=== PATIENT | male | born 2000 | race Caucasian/White ===

== ENCOUNTER 2022-10-30 14:38 | Emergency (ER) | payer OTHER, SELFPAY ==
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
[2022-10-30 15:13] VITALS: BP 108/60; PULSE 53; RESP 18; TEMP 36.4; O2SAT 100
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
== END 2022-10-30 16:00 | disposition home or self-care (01) ==
PROVIDERS: Emergency Provider Nurse Practitioner Family
DX: M24.811 Other specific joint derangements of right shoulder, not elsewhere classified (principal); V86.56XA Driver of dirt bike or motor/cross bike injured in nontraffic accident, initial encounter
CPT/HCPCS: 73030; 99213; G0463

== ENCOUNTER 2025-05-15 08:02 | Emergency (ER) | payer BC, OTHER, SELFPAY ==
--- NOTE | ~2025-05-15 | XR_ITS ---
EXAM/ PROCEDURE: XR ankle LT min 3V - 05/15/2025 8:18 CDT HISTORY: 25 years old Male with left lateral/medial ankle pain- roll injury COMPARISON: None available TECHNIQUE: Four view(s) FINDINGS/ IMPRESSION: There are no fractures or dislocations.Joint spaces are within normal limits. Mild diffuse soft tissu e injury around the ankle. Reviewed, dictated and finalized at location A.
--- OUTSIDE RECORDS SUMMARY | 2025-05-15 08:05 | XMS_ITS | Continuity of Care Document ---
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 SEL[place] [facility] [place] [address](ATR 331 TRS,BMT) OUTPATIENT [id number] Notes Entered by: MARK CHURCH 13 Aug 2019 0845 ------- ------- ------- ------- -- L ankle f/u ENOC CHURCH 08/13 Released w/o Limitations [facility] [place] [address](A TR 331 TRS,BMT ) [employer]([facility]) OUTPATIENT [id number] sore throat, nausea x 48hrs-- SQ361 MARE GAUTAM 10/28 Released w/o Limitations [employer]([facility]) [employer]([facility]) TELE CONSULT [id number] Notes Entered by: Gregoria GAUTAM 31 Oct 2019 0808 ------- ------- ------- ------- -- Test Results SELENE MORSE 10/31 Released to Self Care [employer](O peratio nal Primary Care) [employer]([facility]) TELE CONSULT [id number] Notes Entered by: DARRION DRISCOLL 14 Apr 2020 1141 ------- ------- ------- ------- -- Tevin Medina Pt c/o stomach pain that comes and goes since y Right now pain YURY VICTORIA 04/14 Referred for Appointment [employer](F light Medicin e Clinic) [employer](Anand demic Virus) OUTPATIENT [id number] DTT RONNIE CARLSON 04/15 Released w/o Limitations [employer](P andemic Virus) [employer](Anand demic Virus) TELE CONSULT [id number] Notes Entered by: ALDO HERNDON 17 Apr 2020 1008 ------- ------- ------- ------- -- NEG COVID results ALDO HERNDON 04/17 Medical Group(P andemic Virus) [facility] Group(Bas e Operation al Medicine Cell) OUTPATIENT [id number] Joyce NIK MYRNAJoyce BAKER 04/22 Released w/o Limitations [facility](B ase Operati onal Medicin e Cell) [facility](Bas e Operation al Medicine Cell) OUTPATIENT [id number] Notes Entered by: KATHERIN LOMBARDI 28 Apr 2020 1312 ------- ------- ------- ------- -- JESSICA WEBSTER 04/28 Released w/o Limitations [employer](B ase Operati onal Medicin e Cell) [facility](Hea ring Conservat ion) OUTPATIENT [id number] Notes Entered by: DRAKE PIENDA 01 May 2020 1448 ------- ------- ------- ------- -- NINA MARLEY 05/01 Released w/o Limitations [facility](H earing Conserv ation) [facility](Hea ring Conservat ion) OUTPATIENT [id number] Notes Entered by: DRAKE PINEDA 04 May 2020 0817 ------- ------- ------- ------- -- NINA MARLEY 05/04 Released w/o Limitations [employer] [facility](H earing Conserv ation) [facility]) TELE CONSULT [id number] Notes Entered by: SHARRON VAZQUEZ 03 Jul 2020 0933 ------- ------- ------- ------- -- Tevin Hawthorne c/o diarrhe a and nausea CECELIA MCGOWAN 07/03 Released to [facility] [employer] [facility](F light Medicin e Clinic) [facility](Opt ometry Services) OUTPATIENT [id number] optomet ry SATURNINO HOWARD 07/21 Released w/o Limitations [employer] [facility](O ptometr y Service s) [facility](Opt ometry Services) OUTPATIENT [id number] DFE/CL Update SATURNINO HOWARD 07/22 Released w/o Limitations [facility](O ptometr y Service s) [facility](Anand demic Virus) TELE CONSULT [id number] Notes Entered by: JASPREET KinneyMITCH BETTE 04 Aug 2020 0708 ------- ------- ------- ------- -- Ac. Roly Cruz COVID-1 9 concern . Sore/sc ratchy throat, headach e, loss of taste, STEENSTRY, THOMAS 08/04 Referred for Appointment [facility](P andemic Virus) [facility](Anand demic Virus) OUTPATIENT [id number] covid, red f150 MARYANA SEAY 08/04 Sick at Home/Quarter s [facility](P andemic Virus) [facility](Anand demic Virus) TELE CONSULT [id number] Notes Entered by: YANIRA SANTACRUZ 05 Aug 2020 0917 ------- ------- ------- ------- -- COVID results ALDO HERNDON 08/05 [facility] Group(P andemic Virus) [facility](Anand demic Virus) TELE CONSULT [id number] Notes Entered by: Joyce FOSTER 23 Sep 2020 0702 ------- ------- ------- ------- -- Ac. Hawthorne COVID-1 9 concern ; New/wor sening headach e, wheezin g, body aches, ROSLYN, CECELIA J 09/23 Referred for Appointment [facility](P andemic Virus) [facility](Anand demic Virus) OUTPATIENT [id number] COVID PUI: cough, chest congest ion, fever ESTELA ARZATE 09/23 Sick at Home/Quarter s th [facility](P andemic Virus) [facility] Group(Anand demic Virus) OUTPATIENT [id number] Notes Entered by: VENKATA AMBRIZ 25 Sep 2020 0809 ------- ------- ------- ------- -- POS COVID F/U sx 09/22, tested 09/23 VENKATA AMBRIZ 09/25 Released w/o Limitations [facility](P andemic Virus) [facility] ROK 3) OUTPATIENT [id number] PUI sore throat/ sinus pressur e # Black catrachito ROLON ESTELA ARZATE 01/12 Released with Work/Duty Limitations [facility] ROK 3) Medical Group([facility] 3) TELE CONSULT [id number] Notes Entered by: PEDRO HERNANDEZ 12 Jan 2021 1112 ------- ------- ------- ------- -- COVID results YURIDIA HERNANDEZ 01/12 Released to [facility] ROK 3) [facility]) OUTPATIENT [id number] ingrown toenail - big toes # KELLY HAWTHORNE 02/03 Released w/o Limitations [facility](F light Medicin e Clinic) [facility] Medicine [facility]) TELE CONSULT [id number] Notes Entered by: Henrik GONZALEZ 19 Feb 2021 0748 ------- ------- ------- ------- -- Ac. Hawthorne - Pt had Surgery - [facility] 02/18/21 two ingrown KELLY HAWTHORNE 02/19 Medical Group(F light Medicin e Clinic) [facility] Medicine [facility]) TELE CONSULT [id number] Notes Entered by: Enma MANCIA 26 Feb 2021 1416 ------- ------- ------- ------- -- Network Results -Nandini ry-01/22 KELLY HAWTHORNE 02/26 Medical Group(F light Medicin e Clinic) Medical Group(Hea ring Conservat ion) OUTPATIENT [id number] [facility] MACIEL KIMMYTONY GALE 04/20 Released w/o Limitations [facility](H earing Conserv ation) [facility](Bas e Operation al Medicine Cell) OUTPATIENT [id number] MYRNA POWELL 04/30 Released w/o Limitations [facility](B ase Operati onal Medicin e Cell) [facility](Bas e Operation al Medicine Cell) OUTPATIENT [id number] Notes Entered by: Andrew OLGUIN 04 Jun 2021 1119 ------- ------- ------- ------- -- Dhara-SARTHAK Almaraz 06/04 Released w/o Limitations [facility](B ase Operati onal Medicin e Cell) Medical Group(Bas e Operation al Medicine Cell) OUTPATIENT [id number] MYRNA ARCE 06/08 Released w/o Limitations [facility](B ase Operati onal Medicin e Cell) [facility] Medicine [facility]) TELE CONSULT [id number] Notes Entered by: DARRION DRISCOLL 19 Jul 2021 0936 ------- ------- ------- ------- -- Tevin Olguin Pt due for REE and needs new glasses He deploys Aug 18 [phone] 7 RENETTA RODRÍGUEZ 07/19 Referred for Appointment [facility](F light Medicin [facility]) [facility] OUTPATIENT [id number] 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 01/02 Released w/o Limitations Theater Facilit [facility] 0013C-AF- C-19TH [facility] [id number] Encount er for issue of other medical certifi piyush ZHOU 08/22 Discharge Disposition: Home or Self Care 0013C-A F-C-19T H [facility] [place] 0013C-AF- C-19TH [facility] Mass Vaccine [id number] 09/23 0013C-A F-C-19T H [facility] [place] 0013C-AF- C-19TH [facility] Dental [id number] ADRIANNE RGARRJAMES 10/01 Discharge Disposition: Home or Self Care 0013C-A F-C-19T H [facility] 0013C-AF- C-19TH [facility] [id number] Encount er for issue of other medical certifi piyush RUPALI FERMIN 11/22 Discharge Disposition: Home or Self Care 0013[facility] [id number]-[id number] MD[facility] Outside Documentat ion Only [id number] 12/03 Discharge Disposition: Home or Self Care 8224R-1 26 MDG Procedures Combined list of: 1) Procedures from Department of Veterans Affairs facilities going back up to thelast 18 months, not all VA non-surgical procedures are included; 2) All procedures from the Department of Defense facilities. Procedure Procedure Type Code Date Perfomer Comments Sourc e No data available for this section Ambulatory Pharmacy TELE ASSESS & MGT SRV PROV QUAL NONPHYS HLTH CARE PRO TO EST PAT,PARENT,GUARD NOT ORIG REL ASSESS & MGT SRV PROV W/IN PREV 7 DAYS NOR LEAD ASSESS & MGT SRV/PX W/IN NXT 24 HR/SOON APT;5-10 MIN MED DIS 2020 [facility] ADMINISTRATION OF PATIENT-FOCUSED HEALTH RISK ASSESSMENT INSTRUMENT (EG, HEALTH HAZARD APPRAISAL) WITH SCORING AND DOCUMENTATION, PER STANDARDIZED INSTRUMENT 2020 DoD ADMINISTRATION OF PATIENT-FOCUSED HEALTH RISK ASSESSMENT INSTRUMENT (EG, HEALTH HAZARD APPRAISAL) WITH SCORING AND DOCUMENTATION, PER STANDARDIZED INSTRUMENT 2020 DoD BRIEF COMM TECH-BASE SERV,E.G. VIRT CHK-IN,BY PHYS/OTH QUAL HCP,RPT E&M SERV,PROV TO EST PT,NOT ORIG FRM REL E/M SERV PROV W/IN PREV 7DAY NOR LEAD TO E/M SRV/PX W/IN NEXT 24HR/SOON BERNARD; 5-10 MIN DISC 2020 DoD SCREENING TEST, PURE TONE, AIR ONLY 2020 DoD PSYCHOLOGICAL OR NEUROPSYCHOLOGICAL TEST ADMINISTRATION, WITH SINGLE AUTOMATED, STANDARDIZED INSTRUMENT VIA ELECTRONIC PLATFORM, WITH AUTOMATED RESULT ONLY 2020 DoD BRIEF COMM TECH-BASE SERV,E.G. VIRT CHK-IN,BY PHYS/OTH QUAL HCP,RPT E&M SERV,PROV TO EST PT,NOT ORIG FRM REL E/M SERV PROV W/IN PREV 7DAY NOR LEAD TO E/M SRV/PX W/IN NEXT 24HR/SOON BERNARD; 5-10 MIN DISC 2020 DoD BRIEF COMM TECH-BASE SERV,E.G. VIRT CHK-IN,BY PHYS/OTH QUAL HCP,RPT E&M SERV,PROV TO EST PT,NOT ORIG FRM REL E/M SERV PROV W/IN PREV 7DAY NOR LEAD TO E/M SRV/PX W/IN NEXT 24HR/SOON BERNARD; 5-10 MIN DISC 2019 DoD TELE ASSESS & MGT SRV PROV QUAL NONPHYS HLTH CARE PRO TO EST PAT,PARENT,GUARD NOT ORIG REL ASSESS & MGT SRV PROV W/IN PREV 7 DAYS NOR LEAD ASSESS & MGT SRV/PX W/IN NXT 24H/SOON APT; 11-20 MIN MED DIS 2019 DoD PRESCRIPTION OF OPTICAL AND PHYSICAL CHARACTERISTICS OF AND FITTING OF CONTACT LENS, WITH MEDICAL SUPERVISION OF ADAPTATION; CORNEAL LENS, BOTH EYES, EXCEPT FOR APHAKIA 2019 DoD FITTING OF SPECTACLES, EXCEPT FOR APHAKIA; MONOFOCAL 2019 DoD TELE ASSESS & MGT SRV PROV QUAL NONPHYS HLTH CARE PRO TO EST PAT,PARENT,GUARD NOT ORIG REL ASSESS & MGT SRV PROV W/IN PREV 7 DAYS NOR LEAD ASSESS & MGT SRV/PX W/IN NXT 24 HR/SOON APT;5-10 MIN MED DIS 2019 DoD SCREENING TEST, PURE TONE, AIR ONLY 2019 [facility] SCREENING TEST, PURE TONE, AIR ONLY 2019 [facility] ADMINISTRATION OF PATIENT-FOCUSED HEALTH RISK ASSESSMENT INSTRUMENT (EG, HEALTH HAZARD APPRAISAL) WITH SCORING AND DOCUMENTATION, PER STANDARDIZED INSTRUMENT 2019 [facility] BRIEF COMM TECH-BASE SERV,E.G. VIRT CHK-IN,BY PHYS/OTH QUAL HCP,RPT E&M SERV,PROV TO EST PT,NOT ORIG FRM REL E/M SERV PROV W/IN PREV 7DAY NOR LEAD TO E/M SRV/PX W/IN NEXT 24HR/SOON BERNARD; 5-10 MIN DISC 2019 [facility] Threshold Audiogram (Pure Tone) Threshold Audiogram (Pure Tone) [id number] Supervised Injection Intramuscular Antibiotic Supervised Injection Intramuscular Antibiotic [id number] TIMO HEREDIA Brief communication technology-based service, e.g. virtual check-in, by a physician or other qualified health care profe priscila who can report evaluation and management services, provided to an established patient, not originating from a related E/M service provided within the previous 7 days nor leading to an E/M service or procedure within the next 24 hours or soonest available appointment; 5-10 minutes of medical discu MYRNA Vázquez [facility] Audiogram (Screening) Audiogram (Screening) [id number] MARGAR[address] HENSLEY Non-Physician Phone Call To Patient/Provider Brief (5-10min) Non-Physician Phone Call To Patient/Provider Brief (5-10min) [id number] CECELIA MCGOWAN Ophthalmological New Patient Start Comprehensive Care Ophthalmological New Patient Start Comprehensive Care 04133 SATURNINO HOWARD Determination Of Refractive State Determination Of Refractive State 90792 SATURN[address] HOWARD Spectacles Services Fitting Monofocals (Not For Aphakia) Spectacles Services Fitting Monofocals (Not For Aphakia) 97867 SATUNRINO HOWARD 5A: 5222/145, 1 clear FOC: Delia 5516/140 [facility] Ophthalmological Prior Patient Start Intermediate Level Care Ophthalmological Prior Patient Start Intermediate Level Care 58535 SATURNINO HOWARD Prescription & Fitting Bilateral Corneal Lenses (Not Aphakia Prescription & Fitting Bilateral Corneal Lenses (Not Aphakia 15211 SATURNINO HOWARD [facility] Non-Physician Phone Call To Pt/Provider Intermed (11-20 min) Non-Physician Phone Call To Pt/Provider Intermed (11-20 min) 66844 ROSLYN CECELIA Andrew [facility] Psychometric Neuropsych Testing Battery Admin By Computer Psychometric Neuropsych Testing Battery Admin By Computer [id number] BREANNA GREENE [facility] Social History Combined list of available smoking, tobacco, and other social history from Department of Defense and Veterans Affairs facilities. Social History Type Response Date Comment Sourc e Sex Representation Male (finding) 07/21/2020 Un known Organization Tobacco Frequent/Daily exposure to secondhand smoke in indoor/confined spaces No. Cigarette use: Never-cigarette user. Other Tobacco use: Never-other tobacco user (not cigarettes). Ambulatory Pharmacy Sexual Orientation Ambula tory Pharmacy Gender identity Ambulator y Pharmacy This section is an empty social history section. [facility] Assessment and Plan Combined list of future care activities from Department of Defense and Veterans Affairs facilities (e.g., assessment and plan notes, appointments, orders, and referrals). Additional future care activities may be listed in the Plan of Care section. Result Assessment and Plan Date Source Assessment and Plan Extracted from:Title : [facility] - F2F - SHPE (PCPF) Author: RUPALI RAMÍREZ PA Date: 11/22/24 1. E ncounter for issue of other medical certificate H unter G merlin i s a 2 3 Years o ld Male p resents for SHPE prior to separation along with P shirley Feliz/Neptali Madera request. R cornelioiewed and discussed any issues reported on 2806-10 No significant physical or mental health findings identified during record review that would limit e ligibility for the palsahil feliz/palsahil front program. Member is n ot currently under the care of a medical charge entry specialist a nd has no upcoming surgeries scheduled. Member is not currently undergoing an IRILO/MEB. No conditions requiring MEB or urgent referral. No new health concerns at this time. VSS. Exam unremarkable for gross abnormalities. Member is medically cleared for separation. Final Out : T BD Separation Date: 30 JAN 2025 -- Reviewed DD Form 2806-10 and audiogram electronically -- Separation MHA current or accomplished during visit today -- DD Form 2808 and SHPE documents signed/completed in [facility] -- M ember to follow up with PCM as needed for any health changes -- D oes not meet criteria for I n Transition Program -- PVUA SM medically cleared for P CPF. AF Form 422 completed in [facility]. [facility] Readiness: IMR Status: Green Action Items: --- Profile: No restrictions, WWQ Retention: M eets Standards Special Duty: N one Extracted from:Title: [id number]/PHA Author: KRISTI MANCIA NP Date: 08/22/24 1. E ncounter for issue of other medical certificate Virtual encounter for n on-fly PHA/MHA. I spent about 10-19 mins via telephone r eviewing and discussing PHAQ and MHA responses as well as chart/med review. Both PHA and MHA reviewed and signed off i n ASIMO. * High risk/priority items identified: None MHA: Member denies any SI/HI and appears to be low risk for committing any self harm or injury to others. Discussed any concerns identified on questionnaire. D enies need for care or any mental health concerns at this time. PHA: No unaddressed medical issues, significant findings, or need for additional referrals at this time. Patient is a koroma of resources available ([facility], [facility], OP, [facility], P CM, Family Advocacy, [facility]). Discussed available options to schedule with services if desired. Medication reconciliation complete. All questions answered. 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 See [facility] note copied to RADHA for further details. Referral: N one Follow up with PCM a s needed. Reportable Events: N one Profile: N o restrictions Retention: M eets Standards PRAP: N /A Aero: N /A Extracted from:Title: b/l wrist pain Author: PATRICK HARLEY PA Date: 08/21/24 1. P ain in right wrist Three-month history of ongoing independent right wrist paresthesias. Patient endorses numbness increasing over the past week. Patient denies any pain. Patient denies any triggers to cause symptoms. PE positive Tinel's test right wrist, otherwise normal strength, sensation and range of motion. Likely carpal tunnel. - Recommended wrist brace - Trial OT - Pt denies limitations/profile - Follow-up if no improvement Ordered: Referral Request 2.0 - DoD 2. P ain in left wrist History of ongoing left wrist pain. MRI showed arthritic changes. Patient failed meloxicam. Referral to OT. Ordered: Referral Request 2.0 - DoD Dictated, but not proofread, using voice recognition software. Henrik Mcmullen [address] [place] [address], 19 MDG/OMRS [employer], [place] Extracted from:Title: Left wrist pain Author: MELISSA PORTILLO PA Date: 07/16/24 1. P ain of left wrist 24 y ADAF male - CC left wrist pain x 1 week Denies any known trauma/ELEANOR. States insidious onset of left wrist pain one week ago that acutely worsening over the past week. States pain with ROM and strength. Denies any bruising or swelling to wrist. PE exam today: Reduced ROM and strength, worse with eversion and extension. No acute trauma. N o worrisome symptoms for instability, infection; no systemic or diffuse joint symptoms. - Suspected TFCC injury. - Next fitness exam due: August 2024 Plan - Left wrist xray placed, if negative will consider left wrist MRI - Rx'd NSAIDs prn for pain - Counseled on risk of GI bleeding and Renal injury with prolonged NSAIDs use - Discussed rest, ice, elevation alternating with moist heat - Recommended avoiding positions that causes pain - Recommended against exercising through pain, but may exercise otherwise - Provided pt with wrist splint brace (L3809) to wear during activities once cleared with xray - [address]/ placed - Pt agreed to plan Ordered: meloxicam(meloxicam 15 mg oral tablet), 1 tab(s), Oral, Daily, # 30 tab(s), 0 total refill(s), Maintenance, 1 tab(s) Oral Daily, Pharmacy: [facility] [Not filled] XR Hand Complete 3+ Views Left XR Wrist Complete 3+ Views Left [employer]: -- New AF 469 (//MR) -- IMR reviewed - jamia mccarty -- Member is world-wide qualified -- Member meets retention standards BRIGHT Daniel [address], OMRS/SGXF [employer], [place] Extracted from:Title: [facility] - F2F - Audiogram F/u (PTS)-- Reset Author: RUPALI RAMÍREZ PA Date: 06/14/24 1. T emporary auditory threshold shift, left ear Follow up for audiogram abnormality during annual testing for Hearing Conservation Program. C oncern with symptoms as r eported per patient, mostly with soft muffled conversational tones. Denies any safety risk or inability to perform duties s afely in a loud noise environment with ear protection despite responses marked on audiometric history. B ased on history and exam, no concerns for underlying pathology at this time. No indication for audiology referral at this time. However, if additional PTS occurs, will require specialist eval. Continue with hearing protection and annual audiograms. Hearing Profile: H -1 Audiogram Findings: L eft: [facility] Will recommend resetting l eft a udiogram baseline with results from MAY 24 (2nd a ttempt) -- AF IMT 1753 signed and returned to [facility] -- Recommend new DD 2215 with re-established reference -- C ounseled on hearing protection and r ecommend re-fit with HPD -- No specialist referral or Fit and Risk eval indicated at this time -- Member to continue with annual audiograms for HCP -- Will require audiology referral if second PTS occurs -- PVUA 2. O ccupational exposure to noise See above. Reportable Events: N one Profile: N o restrictions Retention: M eets Standards PRAP: N /A Aero: N /A Extracted from:Title: Abdominal pain f/u Author: MELISSA PORTILLO PA Date: 05/22/24 1. C hronic nonspecific abdominal pain 24 y ADAF male- here today for f/u of his chronic intermittent GI complaints - Patient previously under the care of GI for this condition, colonoscopy and biopsies were completed Oct 14 which showed bowel inflammation and internal hemorrhoids. Patient had no expected f/u with GI. I last saw patient for his intermittent LLQ bowel concerns in February, and then again he reported to our clinic two weeks ago for this vague GI pain. No red flags today, he denies any blood or pus in stool, no nausea/vomiting/diarrhea/constip ation. There is no evidence for immediate concern for appendicitis, diverticulitis, testicular torso or other acute GI/ or cardiopulmonary condition today. - History, exam, vital signs, and presentation are reassuring against emergent process. Plan - Return to GI for continued eval and treatment - Will hold on any imaging/labs at this time, will defer to GI specialist after next eval - Recommend food and symptom diary and to bring to GI - ER precautions - No restrictions required at this time, the patient is fully cleared for duty and fitness. - Pt agreed to plan Ordered: Referral Request 2.0 - [facility] [employer] Zachary LAZO: -- No a ctive AF 469 -- IMR reviewed - jamia mccarty -- Member is world-wide qualified -- Member meets retention standards Captain Melissa Portillo PA-C [facility] [employer], [employer], [place] Extracted from:Title: Office Clinic Note Author: MARCEL BOLAND RN Date: 05/01/24 Abdominal pain ER for severe abdominal pain. DO NOT DRIVE SELF, scheduled f/u with pCM for eval, NAL for non emergent appearance of sx's after hours, RTC if duty day Nausea zofran 4mg ODT per Dr Sage. Vomiting Acute, new onset L ikely viral as Sx are <14 days. - Symptomatic care, and self-limited course - Should f/u after 10-14 days of total symptoms or with development of fever >101 - Educated on expected course of symptoms - Educated on management of symptoms to include rest, hydration, gurgle with warm salt water for sore throat, hot tea w/ honey, OTC meds as needed - Report to ER for SOB, chest pain, inability to hold down fluids, other acute concerns. Extracted from:Title: Acute GI illness Author: MELISSA PORTILLO PA Date: 03/06/24 1. G astroenteritis 24 y ADAF male - here today for acute GI symptoms x 2 days. H x of nausea with vomiting yesterday, no vomiting today. Today he endorses primarily nausea with mild headache. - Denies hematochezia, vomiting, fevers, abdominal pain. Denies sick contacts, A ble to tolerate oral fluids fine but feels its passing straight through. Normal urine output. Mild. A febrile. No abdominal pain. I mproving. -Likely viral GE. T here are no concerning factors today for any acute GI/ conditions needing higher level of care. Plan - Rx'd Zofran for acute nausea, Tylenol/Ibuprofen for prn headache. Counseling given on medication usage - Recommend conservative therapy at this point - Encouraged hydration with water and electrolyte containing drinks - Encouraged rest and adequate hand washing - Encouraged BRAT diet - banana, rice, apples, toast - Return to clinic vs. ER if blood in vomit or stool, fever >100.4, severe abd. pain, constitutional symptoms, decreased urine output, vomiting, or inability hydrate - Follow up in 3-5 days if symptoms are not resolved - may need to investigate for more broad etiology - Avoid anti-diarrhea meds to allow for flushing of GI tract - Return to clinic if symptoms persist, consider labs - 48 hour quarters placed - Pt agrees with plan Ordered: ibuprofen(ibuprofen 400 mg oral tablet), 1 tab(s), Oral, every 4 hr, PRN fever, # 60 tab(s), 0 total refill(s), Acute, 04/06/2024, 1 tab(s) Oral every 4 hr,PRN:fever, Pharmacy: [facility] [Last filled 03/06/24] acetaminophen(Tylenol 325 mg oral tablet), 1 tab(s), Oral, every 4 hr, PRN pain or fever, # 50 tab(s), 0 total refill(s), Acute, 03/06/2025, 1 tab(s) Oral every 4 hr,PRN:pain or fever, Pharmacy: [facility] [Last filled 03/06/24] ondansetron(Zofran ODT 4 mg oral tablet, disintegrating), 1 tab(s), Oral, every 8 hr, PRN nausea/vomiting, # 30 tab(s), 0 total refill(s), Acute, 04/06/2024, 1 tab(s) Oral every 8 hr,PRN:nausea/vomiting, Pharmacy: [facility] [Last filled 03/06/24] [employer]: -- No a ctive AF 469 -- IMR andrzej - jamia mccarty -- Member is world-wide qualified -- Member meets retention standards 1st Lt Melissa Portillo PA-C [facility] [employer], [employer] Extracted from:Title: Acute viral URI Author: SHEEBA PATTON, [facility] Date: 01/02/24 Acute URI (upper respiratory infection) 23 y /o ADAF male presents to [facility] for eval of symptoms consistent with resolving acute viral URI. Symptoms likely self-limited at this time and are expected to resolve within 5-7 days. Counseled patient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
--- OUTSIDE RECORDS SUMMARY | 2025-05-15 08:05 | XMS_ITS ---
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 Name Role Phone Crista Simmons Attending Unavailabl e OTHER Primary Unavailable Immunization Immunization Date Status Additional Notes Code Code System Meningococcal MCV4O 05/16/2017 Completed 136 CVX Pneumococcal conjugate PCV 13 01/26/2002 Completed 133 CVX Pneumococcal conjugate PCV 13 2001 Completed 133 CVX Pneumococcal conjugate PCV 13 2001 Completed 133 CVX Tdap 05/24/2012 Completed 115 CVX meningococcal MCV4P 05/24/2012 Completed 114 CVX DTaP, unspecified formulation 05/16/2006 Completed 107 CVX DTaP, unspecified formulation 05/05/2002 Completed 107 CVX DTaP, unspecified formulation 2001 Completed 107 CVX DTaP, unspecified formulation 2001 Completed 107 CVX DTaP, unspecified formulation 2001 Completed 107 CVX polio, unspecified formulation 05/16/2006 Completed 89 CVX polio, unspecified formulation 2001 Completed 89 CVX polio, unspecified formulation 2001 Completed 89 CVX polio, unspecified formulation 2001 Completed 89 CVX Hep A, unspecified formulation 03/31/2014 Completed 85 CVX Hep A, unspecified formulation 05/24/2012 Completed 85 CVX HPV, quadrivalent 05/19/2015 Completed 62 C VX HPV, quadrivalent 07/11/2014 Completed 62 C VX HPV, quadrivalent 03/31/2014 Completed 62 C VX Hep B, unspecified formulation 01/26/2002 Completed 45 CVX Hep B, unspecified formulation 2001 Completed 45 CVX Hep B, unspecified formulation 2001 Completed 45 CVX varicella 11/13/2009 Completed 21 CVX varicella 01/26/2002 Completed 21 CVX Hib, unspecified formulation 01/26/2002 Completed 17 CVX Hib, unspecified formulation 2001 Completed 17 CVX Hib, unspecified formulation 2001 Completed 17 CVX MMR 05/16/2006 Completed 03 CVX MMR 01/26/2002 Completed 03 CVX Results URINALYSIS - Collect Date/Ti me: 03/28/2023 07:55 [facility] ID: [id number] [address], [place], [id number] LOINC: Test Value Unit Reference Range Code Code System Flag Color DARK YELLOW Clarity CLEAR Spec Grav 1.025 NORMAL: 1.001-1.035 PH 6.0 NORMAL: 5 - 6 Leuk Est NEGATIVE NORMAL: NEGATIVE Nitrates Negative NORMAL: NEGATIVE Protein TRACE NORMAL: NEGATIVE A Glucose NEGATIVE NORMAL: NEGATIVE Ketones LARGE NORMAL: NEGATIVE Urobilinogen NORMAL NORMAL: 0-1 mg/dl Bilirubin NEGATIVE NORMAL: NEGATIVE Blood TRACE NORMAL: NEGATIVE Microscopic See Below Wbc (1-5) NORMAL: 0-3 /hpf Rbc (1-5) NORMAL: 0-3 /hpf A Squam Epith (1-5) NORMAL: 0-1 /hpf Tubal Epith None Seen NORMAL: None Seen Trans. Epi. NONE SEEN NORMAL: None Seen Mucus 3+ NORMAL: None Seen Bacteria None Seen NORMAL: None Seen Crystals NONE SEEN NORMAL: None Seen Casts SEE BELOW NORMAL: None Seen HYALINE CASTS 1-2 NORMAL: None Seen A Yeast NONE SEEN NORMAL: None Seen Trichomonas NONE SEEN NORMAL: None Seen Spermatozoa NONE SEEN NORMAL: None Seen COVID, FLU A AND B & RSV JANE - Collect Date/Time: 03/28/2023 07:15 [facility] ID: [id number] [address] [place], [place], [id number] LOINC: 55569-8 Test Value Unit Reference Range Code Code System Flag SARS-CoV-2 NOT DETECTED INFLUENZA A PCR NOT DETECTED INFLUENZA B PCR NOT DETECTED RSV PCR NOT DETECTED NORMAL: NEGATIVE STREP SCREEN - Collect Date/ Time: 03/28/2023 07:15 [facility] ID: [id number] [address], [place], [address] LOINC: 6556-5 Test Value Unit Reference Range Code Code System Flag STREP SCREEN NEGATIVE NORMAL: NEGATIVE 6556-5 LOINC CBC W DIFF - Collect Date/Ti me: 03/28/2023 07:10 [facility] ID: [id number] [address], [place], [id number] LOINC: 04281-1 Test Value Unit Reference Range Code Code System Flag WBC 11.5 10^3/uL L=3.5 H=11.0 6690-2 LOINC H RBC 4.58 10^6/uL L=4.30 H=5.30 HEMOGLOBIN 14.1 g/dL L=12.3 H=17.3 HEMATOCRIT 41.4 % L=36.9 H=49.3 MCV 90 fl L=81 H=96 MCH 30.8 pg L=29.0 H=33.0 MCHC 34.1 g/dl L=29.0 H=41.0 RDW 40 fl L=32 H=54 PLT COUNT 119 10^3/uL L=140 H=450 L LY% 7 % L=11 H=41 L MO% 9 % L=2 H=14 NE% 83 % L=48 H=75 H IG% 1 % L=0 H=1 EO% 0 % L=0 H=5 L BA% 0 % L=0 H=2 LY# 0.82 10^3/uL L=0.30 H=3.30 MO# 1.00 10^3/uL L=0.15 H=1.30 NE# 9.54 10^3/ul L=1.20 H=8.00 H IG# 0.07 10^3/uL L=0.00 H=0.10 EO# 0.05 10^3/uL L=0.00 H=0.50 BA# 0.05 10^3/uL L=0.00 H=0.10 MANUAL DIFF NOT INDICATED MORPHOLOGY LACTATE ER - Collect Date/Ti me: 03/28/2023 07:10 [facility] ID: [id number] [address], [place], [address] LOINC: 2345-7 Test Value Unit Reference Range Code Code System Flag LACTATE 1.30 mmol/L L=0.50 H=2.20 MAGNESIUM LEVEL - Collect Da te/Time: 03/28/2023 07:10 [facility] ID: [id number] [address], [place], [address] LOINC: 52947-6 Test Value Unit Reference Range Code Code System Flag MAGNESIUM 1.5 mg/dL L=1.6 H=2.6 L COMPREHENSIVE METABOLIC PANE L - Collect Date/Time: 03/28/2023 07:10 [facility] ID: [id number] [address], [place], [address] LOINC: 27376-9 Test Value Unit Reference Range Code Code System Flag IS PATIENT FASTING? GLUCOSE 126 mg/dl L=70 H=100 2345-7 LOINC H BUN 14 mg/dl L=6 H=20 CREATININE 1.06 mg/dl L=0.60 H=1.10 2160-0 LOINC AGE 23 yrs eGFR 87 SODIUM 136 mmol/L L=133 H=145 2951-2 LOINC POTASSIUM 4.5 mmol/L L=3.3 H=5.1 2823-3 LOINC CHLORIDE 103 mmol/L L=96 H=108 ALK PHOS 80 U/L L=39 H=117 SGOT 16 U/L L=5 H=37 TOTAL BILI 0.5 mg/dl L=0.1 H=1.0 TOTAL PROTEIN 6.3 g/dl L=6.0 H=8.0 ALBUMIN 3.9 g/dl L=3.2 H=5.2 CALCIUM 8.9 mg/dl L=8.4 H=10.2 CO2 22.2 mmol/L L=20.0 H=33.0 2026- LOINC ANION GAP 15 mmol/L L=8 H=16 SGPT 12 U/L L=5 H=40 AMYLASE - Collect Date/Time: 03/28/2023 07:10 [facility] ID: [id number] [address], [place], [address] LOINC: 1798-8 Test Value Unit Reference Range Code Code System Flag AMYLASE 32 U/L L=28 H=100 LIPASE - Collect Date/Time: 03/28/2023 07:10 [facility] ID: [id number] [address], [place], [address] LOINC: 3040-3 Test Value Unit Reference Range Code Code System Flag LIPASE 20 U/L L=13 H=60 CHEST 1 - Completed: 023 07:45 LOINC: EXAMINATION: CHEST RADIOGRAP H SINGLE VIEWAccession: [id number] date/time: 03/28/2023 7:00 AM Reason For Exam: Fever and weakness andComparison: NoneTechnique: Upright AP view of the chestFindings: Heart size normal. Proximal airways unremarkable. No suspicious pulmonary lesion, pneumothorax, or pleural effusion.=====IMPRESSION:===== No acute findings. Created and Electronically Signed by:Brice Yu MD03/28/2023 08:31 CT ABD & PELVIS W/MELINDA Guerrero - Completed: 03/28/2023 08:57 LOINC: EXAMINATION: CT ABDOMEN AND PELVIS WITH AND WITHOUT CONTRASTACCESSION: [id number] DATE/TIME: 03/28/2023 8:32 AM REASON FOR EXAM: Weakness, lower abdominal pain, nausea.COMPARISON: NoneTECHNIQUE: Axial imaging of the abdomen and pelvis was obtained before and after 60 mL Isovue-300 was injected. Post contrast imaging was obtained in corticomedullary and excretory phase of renal excretion.No enteric contrast. Dose lowering technique was used for this study which may include, but is not limited to, dose reduction techniques, automated exposure control, use of iterative reconstruction and ALARA (As low As Reasonably Achievable)/Image Gently techniques. FINDINGS: Without contrast:No evidence of hemorrhage or obstructive or nonobstructive urolithiasis.Abdomen: Adrenal glands are unremarkable. Kidneys demonstrate no suspicious lesion or hydronephrosis.Stomach and duodenum are unremarkable. Spleen is unremarkable. Gallbladder is partially filled and grossly unremarkable.Pancreas grossly unremarkable.Hepatic parenchyma are within normal limits with no evidence of intrahepatic biliary dilatation or mass. Portal vein patent.No mesenteric lymphadenopathy or evidence of small bowel obstruction. No free fluid or free air.No evidence of retroperitoneal lymphadenopathy.No evidence of an abdominal aortic aneurysm.Large bowel: Diffuse wall thickening and fluid density material concerning for diarrhea and colitis. Underlying etiology uncertain.Appendix not inflamed.Pelvis: Urinary bladder and rectum are unremarkable.On bone windows, no evidence of suspicious skeletal lesion or acute compression fracture deformity.Limited evaluation of the lower thorax demonstrates no acute abnormality.IMPRESSION: Diffuse wall thickening and fluid density material concerning for diarrhea and colitis. Underlying etiology uncertain. Clinical correlation and follow-up recommended.No free fluid or free air. Appendix normal. Created and Electronically Signed by:Brice Yu MD03/28/2023 09:18 CT BRAIN W/O CONTRAST - Comp leted: 03/28/2023 07:45 LOINC: CT OF THE BRAIN WITHOUT CONT RASTINDICATION: Patient passed out this morning striking the back of his head on sink.TECHNIQUE: CT of the brain was performed without contrast. A dose lowering technique was used for this procedure, which may include, but is not limited to, dose reduction techniques, automated exposure control, the use of a iterative reconstruction, and ALARA (as low as reasonably achievable)/image gently techniques. . COMPARISON: None.FINDINGS: No evidence of an acute ischemic infarct or intracranial hemorrhage. There are no extra-axial fluid collections or midline shift. The ventricles and sulci are normal in configuration.The visualized orbits are unremarkable. The paranasal sinuses are unremarkable.The osseous structures are unremarkable.IMPRESSION:NO ACUTE INTRACRANIAL ABNORMALITY. Created and Electronically Signed by:Jayant Rdz MD03/28/2023 08:23 Social History Type Status Start Date End Date Code Code Syst em Smoking History Never smoker (Never Smoked) [id number] [facility] Sex Male Hospital Discharge Instructions Should you have any questions prior to discharge, please contact a member of your healthcare team. If you have left the hospital and have any questions, please contact your primary care physician. Reason For Referral No Data Found Allergies and Adverse Reactions Allergy Substance Reaction Severity Start Date Concern Status Co de Code System No Known Drug Allergies Active [id number] [facility]-CT Plan of Treatment No Data Found Encounters Encounter Diagnosis Start Date Code Code Sys tem Infectious gastroenteritis and colitis, unspecified SNOMED-CT Personal Care Team Section Imaging Narrative Notes Progress Notes [facility] 03/28/2023 10:32 Clinical Report - Physicians/Mid Levels [facility] Emergency Department [address] [place] [address] Patient: ABI GERMAN Sex: M : 2000 Age: 23y Arrrival: 03/28/2023 06:42 Departure: 03/28/2023 10:25 Disposition: Discharge Time Seen: 06:53 03/28/2023. Arrived- By ambulance. Historian- patient. Independent historian- EMS personnel and spouse. HISTORY OF PRESENT ILLNESS Chief Complaint: VOMITING and DIARRHEA. This started last night and is still present. It has been intermittent. No recent travel. He has had nausea, vomiting, diarrhea and abdominal pain. No black stools, bloody stools, constipation, flank pain or history of possible bad food exposure. No known contact with a sick individual or change in routine. Has not recently been camping or on antibiotics. The illness is described as moderate. Similar symptoms previously. Recent medical care: Not recently seen/assessed. REVIEW OF SYSTEMS The patient has had fever (for 3 days). He has had muscle aches and a headache. No difficulty with urination, dark urine, cough, chest pain or difficulty breathing. No excessive urination, skin rash, jaundice or back pain. He experienced a syncopal episode; (Pt was washing his hands). He has sustained an injury to his scalp. PAST HISTORY Problems: no known problems. Surgeries: (orchiopexy). Medications: None. Allergies: No Known Drug Allergy. SOCIAL HISTORY Never smoker. Occasional alcohol use. Patient is alcoholic. No drug use. ADDITIONAL NOTES The nursing notes have been reviewed. PHYSICAL EXAM Vital Signs: 03/28/2023 06:43 BP: sitting 129/60. MAP: 83. HR: 86. RR: 18. O2 saturation: 100% on room air. Temp: 100.6 F. Pain level now: 5/10. Have been reviewed. Oxygen saturation normal. Appearance: Alert. Oriented X3. No acute distress. Clinical Report - Physicians/Mid Levels [facility] Emergency Department [address] [place] [address] Patient: ABI GERMAN Sex: M : 2000 Age: 23y Arrrival: 03/28/2023 06:42 Departure: 03/28/2023 10:25 Disposition: Discharge Eyes: Pupils equal, round and reactive to light. Eyes normal inspection. ENT: Ears normal. Nose normal. Dry mucous membranes present. Pharynx normal. Neck: Normal inspection. Neck supple. No meningeal signs, lymphadenopathy or thyromegaly. CVS: Normal heart rate and rhythm. Heart sounds normal. Respiratory: No respiratory distress. Painless inspiration. Breath sounds normal. Abdomen: Soft and nontender. Bowel sounds normal. No organomegaly. No mass. Back: Normal inspection. No CVA tenderness. Skin: Skin warm and dry. Normal skin color. No rash. Extremities: Extremities exhibit normal ROM. No lower extremity edema. Neuro: Oriented X 3. No motor deficit. LABS, X-RAYS, AND EKG Laboratory Tests: CT ABD/PEL wIV Cont: (REJI: 03/28/2023 08:32) ( MsgRcvd 03/28/2023 09:19) Final results Exam CT ABD PELVIS W/WO CONTRAST [address] [place] [address] RADIOLOGY REPORT NAME: NUMBER: SEX: AGE: ADMIT: SERVICE: Type: ABI GERMAN [id number] [facility] 03/28/23 E 3 DATE OF : 2000 M/R#: [id number] HOME PHONE: [phone] RM: 178 CELL PHONE: [phone] ACCESSION NUMBER: [id number] CT ABD COMPLETE: 03/28/2023 08:57 NICOLE ATTENDING PHYSICIAN: PETER BENTLEY SECOND PHYSICIAN: OTHER DICTATING PHYSICIAN: Brice Yu MD PRIMARY CARE PHYSICIAN: OTHER Unsigned transcriptions represent a preliminary report and do not represent a medical or legal document EXAMINATION: CT ABDOMEN AND PELVIS WITH AND WITHOUT CONTRAST EXAM DATE/TIME: 03/28/2023 8:32 AM REASON FOR EXAM: Weakness, lower abdominal pain, nausea. COMPARISON: None TECHNIQUE: Axial imaging of the abdomen and pelvis was obtained before and after 60 mL Isovue- 300 was injected. Post contrast imaging was obtained in corticomedullary and excretory phase of renal excretion.No enteric contrast. Dose lowering technique was used for this study which may include, but is not limited to, dose reduction techniques, automated exposure control, use of iterative reconstruction and ALARA (As low As Reasonably Achievable)/Image Gently techniques. FINDINGS: Clinical Report - Physicians/Mid Levels [facility] Emergency Department [address] [place] [address] Patient: ABI GERMAN Sex: M : 2000 Age: 23y Arrrival: 03/28/2023 06:42 Departure: 03/28/2023 10:25 Disposition: Discharge Without contrast:No evidence of hemorrhage or obstructive or nonobstructive urolithiasis. Abdomen: Adrenal glands are unremarkable. Kidneys demonstrate no suspicious lesion or hydronephrosis. Stomach and duodenum are unremarkable. Spleen is unremarkable. Gallbladder is partially filled and [address] [place] [address] RADIOLOGY REPORT NAME: NUMBER: SEX: AGE: ADMIT: SERVICE: Type: ABI GERMAN [id number] 23 03/28/23 E 3 DATE OF : 2000 M/R#: [id number] HOME PHONE: [phone] RM: 178 CELL PHONE: [phone] ACCESSION NUMBER: [id number] CT ABD COMPLETE: 03/28/2023 08:57 NICOLE ATTENDING PHYSICIAN: PETER BENTLEY SECOND PHYSICIAN: OTHER DICTATING PHYSICIAN: Brice Yu MD PRIMARY CARE PHYSICIAN: OTHER Unsigned transcriptions represent a preliminary report and do not represent a medical or legal document grossly unremarkable. Pancreas grossly unremarkable. Hepatic parenchyma are within normal limits with no evidence of intrahepatic biliary dilatation or mass. Portal vein patent. No mesenteric lymphadenopathy or evidence of small bowel obstruction. No free fluid or free air. No evidence of retroperitoneal lymphadenopathy. No evidence of an abdominal aortic aneurysm. Large bowel: Diffuse wall thickening and fluid density material concerning for diarrhea and colitis. Underlying etiology uncertain. Appendix not inflamed. Pelvis: Urinary bladder and rectum are unremarkable. On bone windows, no evidence of suspicious skeletal lesion or acute compression fracture deformity. Limited evaluation of the lower thorax demonstrates no acute abnormality. IMPRESSION: Diffuse wall thickening and fluid density material concerning for diarrhea and colitis. Underlying etiology uncertain. Clinical correlation and follow-up recommended. [address] [place] [address] RADIOLOGY REPORT NAME: NUMBER: SEX: AGE: ADMIT: SERVICE: Type: ABI GERMAN [id number] 23 03/28/23 E 3 Clinical Report - Physicians/Mid Levels [facility] Emergency Department [address] [place] [address] Patient: ABI GERMAN Sex: M : 2000 Age: 23y Arrrival: 03/28/2023 06:42 Departure: 03/28/2023 10:25 Disposition: Discharge DATE OF : 2000 M/R#: [id number] HOME PHONE: [phone] RM: 178 CELL PHONE: [phone] ACCESSION NUMBER: [id number] CT ABD COMPLETE: 03/28/2023 08:57 NICOLE ATTENDING PHYSICIAN: PETER BENTLEY SECOND PHYSICIAN: OTHER DICTATING PHYSICIAN: Brice Yu MD PRIMARY CARE PHYSICIAN: OTHER Unsigned transcriptions represent a preliminary report and do not represent a medical or legal document No free fluid or free air. Appendix normal. Created and Electronically Signed by: Brice Yu MD 03/28/2023 09:18 CBC w Diff: (REJI: 03/28/2023 07:10) ( MsgRcvd 03/28/2023 07:24) Final results Test Result Flag Units (Reference) WBC 11.5 H 10/uL (3.5 - 11.0) RBC 4.58 10/uL (4.30 - 5.30) HEMOGLOBIN 14.1 g/dL (12.3 - 17.3) HEMATOCRIT 41.4 % (36.9 - 49.3) MCV 90 fl (81 - 96) MCH 30.8 pg (29.0 - 33.0) MCHC 34.1 g/dl (29.0 - 41.0) RDW 40 fl (32 - 54) PLT COUNT 119 L 10/uL (140 - 450) LY% 7 L % (11 - 41) MO% 9 % (2 - 14) NE% 83 H % (48 - 75) IG% 1 % (0 - 1) EO% 0 L % (0 - 5) BA% 0 % (0 - 2) LY# 0.82 10/uL (0.30 - 3.30) MO# 1.00 10/uL (0.15 - 1.30) NE# 9.54 H 10/ul (1.20 - 8.00) IG# 0.07 10/uL (0.00 - 0.10) EO# 0.05 10/uL (0.00 - 0.50) BA# 0.05 10/uL (0.00 - 0.10) MANUAL DIFF NOT INDICATED Urinalysis: (REJI: 03/28/2023 07:55) ( MsgRcvd 03/28/2023 08:11) Final results Test Result Flag Units (Reference) Color DARK YELLOW Clarity CLEAR Spec Grav 1.025 (NORMAL: 1.001 PH 6.0 (NORMAL: 5 - 6 Leuk Est NEGATIVE (NORMAL: NEGAT Nitrates Negative (NORMAL: NEGAT Protein TRACE A (NORMAL: NEGAT Glucose NEGATIVE (NORMAL: NEGAT Ketones LARGE (NORMAL: NEGAT Urobilinogen NORMAL (NORMAL: 0-1 m Bilirubin NEGATIVE (NORMAL: NEGAT Blood TRACE (NORMAL: NEGAT Microscopic See Below Wbc (1-5) (NORMAL: 0-3 / Rbc (1-5) A (NORMAL: 0-3 / Squam Epith (1-5) (NORMAL: 0-1 / Tubal Epith None Seen (NORMAL: None Clinical Report - Physicians/Mid Levels [facility] Emergency Department [address] [place] [address] Patient: ABI GERMAN Sex: M : 2000 Age: 23y Arrrival: 03/28/2023 06:42 Departure: 03/28/2023 10:25 Disposition: Discharge Trans. Epi. NONE SEEN (NORMAL: None Mucus 3+ (NORMAL: None Bacteria None Seen (NORMAL: None Crystals NONE SEEN (NORMAL: None Casts SEE BELOW (NORMAL: None HYALINE CASTS 1-2 A (NORMAL: None Yeast NONE SEEN (NORMAL: None Trichomonas NONE SEEN (NORMAL: None Spermatozoa NONE SEEN (NORMAL: None CMP: (RJEI: 03/28/2023 07:10) ( MsgRcvd 03/28/2023 07:41) Final results Test Result Flag Units (Reference) GLUCOSE 126 H mg/dl (70 - 100) BUN 14 mg/dl (6 - 20) CREATININE 1.06 mg/dl (0.60 - 1.10) AGE 23 yrs eGFR 87 SODIUM 136 mmol/L (133 - 145) POTASSIUM 4.5 mmol/L (3.3 - 5.1) CHLORIDE 103 mmol/L (96 - 108) ALK PHOS 80 U/L (39 - 117) SGOT 16 U/L (5 - 37) TOTAL BILI 0.5 mg/dl (0.1 - 1.0) TOTAL PROTEIN 6.3 g/dl (6.0 - 8.0) ALBUMIN 3.9 g/dl (3.2 - 5.2) CALCIUM 8.9 mg/dl (8.4 - 10.2) CO2 22.2 mmol/L (20.0 - 33.0) ANION GAP 15 mmol/L (8 - 16) SGPT 12 U/L (5 - 40) \BLDo\GFR INTERPRETATION\BLDx\ Age(years) Average Est GFR by age 20-29 116 ml/min/1.73m 30-39 107 ml/min/1.73m 40-49 99 ml/min/1.73m 50-59 93 ml/min/1.73m 60-69 85 ml/min/1.73m 70+ 75 ml/min/1.73m \BLDo\The MDRD Study equation has not been validated in children (<18years) women, the elderly (>70 years), racial or ethnic subgroups other than Caucasians and . If patient is multiply the result by 1.210. eGFR calculated from the MDRD equation was validated in outpatients with stable or slowly declining renal function. It may not be applicable to acutely ill inpatients with rapidly changing renal function or fluid imbalance.\BLDx\ Amylase: (REJI: 03/28/2023 07:10) ( [facility] Final results Test Result Flag Units (Reference) AMYLASE 32 U/L (28 - 100) Lipase: (REJI: 03/28/2023 07:10) ( MsgRcvd 03/28/2023 07:42) Final results Test Result Flag Units (Reference) LIPASE 20 U/L (13 - 60) Lactate, Serum: (REJI: 03/28/2023 07:10) ( WvgRcvd 03/28/2023 07:38) Final results Test Result Flag Units (Reference) LACTATE 1.30 mmol/L (0.50 - 2.20) Magnesium: (REJI: 03/28/2023 07:10) ( MsgRcvd 03/28/2023 07:42) Final results Test Result Flag Units (Reference) MAGNESIUM 1.5 L mg/dL (1.6 - 2.6) MAGNESIUM OB THERAPEUTIC RANGE: 4.8 - 8.4 mEq/L COVID, Flu A and B RSV: (REJI: 03/28/2023 07:15) ( [facility] 03/28/20[facility] 08:05) Final results Test Result Flag Units (Reference) SARS-CoV-2 NOT DETECTED SARS-CoV-2 test is only for use under FDA Emergency Use Authorization INFLUENZA A PCR NOT DETECTED INFLUENZA B PCR NOT DETECTED RSV PCR NOT DETECTED (NORMAL: NEGAT Clinical Report - Physicians/Mid Levels [facility] Emergency Department [address] [place] [address] Patient: ABI GERMAN Sex: M : 2000 Age: 23y Arrrival: 03/28/2023 06:42 Departure: 03/28/2023 10:25 Disposition: Discharge Rapid Strep Screen: (REJI: 03/28/2023 07:15) ( MsgRcvd 03/28/2023 07:38) Final results Test Result Flag Units (Reference) STREP SCREEN NEGATIVE (NORMAL: NEGAT Chest 1V: (REJI: 03/28/2023 07:30) ( MsgRcvd 03/28/2023 08:32) Final results Exam CHEST 1 [address] [place] [address] RADIOLOGY REPORT NAME: NUMBER: SEX: AGE: ADMIT: SERVICE: Type: ABI GERMAN [id number] 23 03/28/23 E 3 DATE OF : 2000 M/R#: [id number] HOME PHONE: [phone] RM: 178 CELL PHONE: [phone] ACCESSION NUMBER: [id number] CHEST 1 COMPLETE: 03/28/2023 07:45 NICOLE ATTENDING PHYSICIAN: PETER BENTLEY SECOND PHYSICIAN: OTHER DICTATING PHYSICIAN: Brice Yu MD PRIMARY CARE PHYSICIAN: OTHER Unsigned transcriptions represent a preliminary report and do not represent a medical or legal document EXAMINATION: CHEST RADIOGRAPH SINGLE VIEW Exam date/time: 03/28/2023 7:00 AM Reason For Exam: Fever and weakness and Comparison: None Technique: Upright AP view of the chest Findings: Heart size normal. Proximal airways unremarkable. No suspicious pulmonary lesion, pneumothorax, or pleural effusion. ===== IMPRESSION:===== No acute findings. Created and Electronically Signed by: Brice Yu MD 03/28/2023 08:31 CT Head wo IV Cont: (REJI: 03/28/2023 07:30) ( MsgRcvd 03/28/2023 08:25) Final results Exam CT BRAIN W/O CONTRAST [address] [place] [address] Clinical Report - Physicians/Mid Levels [facility] Emergency Department [address] [place] [address] Patient: ABI GERMAN Sex: M : 2000 Age: 23y Arrrival: 03/28/2023 06:42 Departure: 03/28/2023 10:25 Disposition: Discharge RADIOLOGY REPORT NAME: NUMBER: SEX: AGE: ADMIT: SERVICE: Type: ABI GERMAN [id number] M 23 03/28/23 E 3 DATE OF : 2000 M/R#: [id number] HOME PHONE: [phone] RM: 178 CELL PHONE: [phone] ACCESSION NUMBER: [id number] CT BRAIN W/O CONTRAST COMPLETE: 03/28/2023 07:45 NICOLE ATTENDING PHYSICIAN: PETER LANDA PHYSICIAN: OTHER DICTATING PHYSICIAN: Jayant Rdz MD PRIMARY CARE PHYSICIAN: OTHER Unsigned transcriptions represent a preliminary report and do not represent a medical or legal document CT OF THE BRAIN WITHOUT CONTRAST INDICATION: Patient passed out this morning striking the back of his head on sink. TECHNIQUE: CT of the brain was performed without contrast. A dose lowering technique was used for this procedure, which may include, but is not limited to, dose reduction techniques, automated exposure control, the use of a iterative reconstruction, and ALARA (as low as reasonably achievable)/image gently techniques. . COMPARISON: None. FINDINGS: No evidence of an acute ischemic infarct or intracranial hemorrhage. There are no extra-axial fluid collections or midline shift. The ventricles and sulci are normal in configuration. The visualized orbits are unremarkable. The paranasal sinuses are unremarkable. The osseous structures are unremarkable. IMPRESSION: NO ACUTE INTRACRANIAL ABNORMALITY. [address] [place] [address] RADIOLOGY REPORT NAME: NUMBER: SEX: AGE: ADMIT: SERVICE: Type: ABI GERMAN [id number] M 23 03/28/23 E 3 DATE OF : 2000 M/R#: [id number] HOME PHONE: [phone] RM: 178 CELL PHONE: [phone] ACCESSION NUMBER: [id number] CT BRAIN W/O CONTRAST COMPLETE: 03/28/2023 07:45 NICOLE ATTENDING PHYSICIAN: PETER BENTLEY SECOND PHYSICIAN: OTHER DICTATING PHYSICIAN: Jayant Rdz MD PRIMARY CARE PHYSICIAN: OTHER Unsigned transcriptions represent a preliminary report and do not represent a medical or legal document Created and Electronically Signed by: Jayant Rdz MD 03/28/2023 08:23 Clinical Report - Physicians/Mid Levels [facility] Emergency Department [address] [place] [address] Patient: ABI GERMAN Sex: M : 2000 Age: 23y Arrrival: 03/28/2023 06:42 Departure: 03/28/2023 10:25 Disposition: Discharge . PROGRESS AND PROCEDURES Course of Care: 09:28 Pt with fever and CT evidence of colitis. Will place on cipro and flagyl and make sure he can keep clear liquids down and meds down prior to discharge. CLINE is gone. Still nauseated but no emesis or diarrhea here in ED. 10:10 Keeping fluids and meds down. No longer nauseated. Patient/family counseled. Disposition orders written. Disposition: Discharged. Condition: stable and fair. CLINICAL IMPRESSION Acute infectious colitis. No ulcerative colitis, Crohn's disease, pseudomembranous colitis, ischemic colitis, inflammatory colitis or allergic colitis. INSTRUCTIONS Drink plenty of fluids. Take clear liquids only (frequent sips) today. Advance diet as tolerated. Avoid alcohol. Avoid fatty, fried/greasy, lactose-containing (such as milk, cheese and ice cream) and spicy foods until well. Warnings: GENERAL WARNINGS: Return or contact your physician immediately if your condition worsens or changes unexpectedly, if not improving as expected, or if other problems arise. SPECIFICALLY, return if there is no improvement in the pain, vomiting or inability to keep fluids down. Your Current Medications: . No home medication. Prescription Medications: Compazine 10 mg tablets: take 1 orally every 6 hours as needed for nausea or vomiting. Dispense ten (10). No refills. Substitution is permissible Cipro 500 mg: take 1 tab orally every 12 hours for 10 days. No refills. Substitution is permissible. Flagyl 500 mg: Take 1 tablet orally every 8 hours for 10 days. No refill Clinical Report - Physicians/Mid Levels [facility] Emergency Department [address] [place] [address] Patient: ABI GERMAN Sex: M : 2000 Age: 23y Arrrival: 03/28/2023 06:42 Departure: 03/28/2023 10:25 Disposition: Discharge Follow-up: Follow up with your healthcare provider. Understanding of the discharge instructions verbalized by patient and family. (Electronically signed by ePter Bentley MD 03/28/2023 10:18) [facility] 11/20/2024 11:18 Addenda for ABI GERMAN VisitID: [id number] Date: 03/28/2023 03/29/2023 11:06 03/29/23 1100 Pt's mother called and requested a work note for his visit yesterday. Dr. Salgado states to provide pt with a work note for 2 days. 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 Mother states pt is feeling much better today. (Electronically signed by Mimi Canales R.N. - 03/29/2023 11:06)
--- NOTE | 2025-05-15 08:07 | ED_ITS ---
HPI - Extremity Injury (Lower) General Chief Complaint: Extremity Injury, Lower Stated Complaint: ankle injury Time Seen by Provider: 05/15/25 08:05 Source: patient Mode of arrival: ambulatory Limitations: no limitations History of Present Illness HPI Narrative: Jeremy is a 25 year old male patient presenting to the clinic today with c/o left ankle pain/injury x1 day. He reports he rolled his ankle yesterday. Rates his pain a 7/10 currently. Pain is worse with ambulation and dorsal flexion. Took Motrin yesterday but nothing today. History of left ankle fracture-can not recall where he broke it or when he broke it. Related Data Allergies Allergy/AdvReac Type Severity Reaction Status Date / Time No Known Allergies Allergy Verified 05/15/25 08:16 Review of Systems Review of Systems: Pertinent positives per HPI. Patient denies any fever, chills, rash, headache, visual changes, dizziness, cough, runny nose, sore throat, shortness of breath, chest pain, palpitations, nausea, vomiting, diarrhea, constipation, abdominal pain, or any urinary issues. [facility] Past Medical History Medical History ADHD Closed left ankle fracture Surgical History Surgical History History of genitourinary surgery undescended testicle Comments At the time of my signature, I reviewed and agree with the nursing past medical, surgical, social, and family history. There is no relevant family history pertinent to the patient complaint. Exam Narrative: General: Well-developed, well nourished, in no apparent distress Head: Normocephalic, atraumatic. Cardio: Regular rate and rhythm, s1 and s2 normal, no murmur appreciated. Resp: Clear to auscultation bilaterally, no rhonchi, rales, wheezing or rubs. Musculoskeletal: No deformity, tender to palpation over the lateral and medial ankle, pain with range of motion-limited due to pain some, decreased strength/movement with dorsal flexion due to pain, otherwise muscle strength strong and equal, peripheral pulse strong, no edema, no cyanosis, limping gait and station Course Course Emergency Course: Portions of this record may have been created with voice recognition software. Level of Care: Express Care Visit Vital Signs Vital signs: Vital Signs Temperature 36.6 C 05/15/25 08:14 Pulse Rate 62 05/15/25 08:14 Respiratory Rate 18 05/15/25 08:14 Blood Pressure 112/58 L 05/15/25 08:14 Pulse Oximetry 100 05/15/25 08:14 Oxygen Delivery Room Air 05/15/25 08:14 Temperature 36.6 C 05/15/25 08:14 Pulse Rate 62 05/15/25 08:14 Respiratory Rate 18 05/15/25 08:14 Blood Pressure 112/58 L 05/15/25 08:14 Pulse Oximetry 100 05/15/25 08:14 Oxygen Delivery Room Air 05/15/25 08:14 Vital signs reviewed MDM - Extremity Injury (Lower) MDM Narrative Medical decision making narrative: At the time of visit patient is resting comfortably on the exam table. Patient appears to be nontoxic. Left ankle pain/injury x1 day. Rolled his ankle yesterday. Medial and lateral ankle pain. Rates his pain a 7/10 currently. Pain is worse with ambulation and dorsal flexion. Took Motrin yesterday but nothing today. Sensation, circulation, motion intact. Diagnostics: X-ray of the ankle was performed and negative for any sign of fracture or malalignment. Plan: I suspect patient has a left ankle sprain. Ice pack given, Clem wrap applied, sensation, circulation, and motion within normal limits after application of Clem wrap. Recommend wearing a ankle strep splint when ambulating/bearing weight for the next week. He declines a work note. Supportive measures were discussed with the patient and they voiced understanding discharge instructions and agrees to treatment plan. Return precautions reviewed Differential Diagnosis Differential diagnosis: Likely ankle sprain and strain and ankle fracture Imaging Data Radiologist's impression: [facility] [address] [address] XRay Report Signed Patient: Jeremy iMller : 2000 MR#: [id number] Age: 25 Acct:[id number] Loc: [facility] ADM Date: 05/15/25Attending Dr: Ordering Physician: Nagi Mena APRN Date of Service: 05/15/25 Procedure(s): XR ankle LT min 3V Accession Number(s): [id number] cc: Nagi Mena APRN; [employer]SEMBLER PHYSICIAN~ EXAM/ PROCEDURE: XR ankle LT min 3V - 05/15/2025 8:18 CDT HISTORY: 25 years old Male with left lateral/medial ankle pain- roll injury COMPARISON: None available TECHNIQUE: Four view(s) FINDINGS/ IMPRESSION: There are no fractures or dislocations.Joint spaces are within normal limits. Mild diffuse soft tissue injury around the ankle. Reviewed, dictated and finalized at location A. Please be advised this is a medical document. It is intended for [id number] communication. It is written in medical language and may contain unfamiliar abbreviations or verbiage. Medical documents are intended to carry relevant information, facts as evident, and the clinical opinion of the practitioner at the time of the encounter. This report may have been done utilizing a voice recognition system. Attempts have been made to correct errors. However, there may be uncorrected grammatical, spelling, and recognition errors present. The file time of this note does not necessarily represent the time of service. Dictated By: West Null MD 05/15/25 0838 Signed By: <Electronically signed by West Null MD in OV> 05/15/25 0839 Discharge Plan Discharge Clinical Impression: Sprain of ankle, left Qualifiers: Encounter type: initial encounter Involved ligament of ankle: unspecified ligament Qualified Code(s): S93.402A - Sprain of unspecified ligament of left ankle, initial encounter Patient Disposition: Home Condition: Stable Instructions: Antibiotic Form, Ankle Sprain (ED) Additional Instructions: X-rays negative for any sign of fracture or malalignment of the left ankle. Rest, ice, elevate, and wear clem wrap as directed Tylenol/motrin for pain per bottle directions May wear an ankle stirrup splint while walking Gradually bear weight No running or sports until healed. Follow up with your PCP if symptoms persist more than 1 week. Patient Language: Ukrainian Prescriptions: No Action naproxen 500 mg tablet 500 mg PO BID 10 Days Qty: 20 0RF Follow-up/Referrals: PHYSICIAN,[employer] ASSEMBLER [Primary Care Provider] - Time of Disposition: 08:47 Quality NIHSS Nursing Documentation ED NIHSS nursing documentation: reviewed/agree
--- OUTSIDE RECORDS SUMMARY | 2025-05-15 08:12 | XMS_ITS | Continuity of Care Document ---
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 ry-01/22 KELLY HAWTOHRNE 02/26 Medical Group(F light Medicin e Clinic) Medical Group(Hea ring Conservat ion) OUTPATIENT [id number] [facility] PAULO MACIEL KIMMYTONY GALE 04/20 Released w/o [employer] [facility](H earing Conserv ation) Medical Group(Bas e Operation al Medicine Cell) OUTPATIENT [id number] MYRNA POWELL 04/30 Released w/o [employer] [facility](B ase Operati onal Medicin e Cell) [facility] Group(Bas e Operation al Medicine Cell) OUTPATIENT [id number] Notes Entered by: Andrew OLGUIN 04 Jun 2021 1119 ------- ------- ------- ------- -- Dhara-SARTHAK Almaraz 06/04 Released w/o [employer] [facility](B ase Operati onal Medicin e Cell) Medical Group(Bas e Operation al Medicine Cell) OUTPATIENT [id number] MYRNA ARCE 06/08 Released w/o [employer] [facility](B ase Operati onal Medicin e Cell) Medical Group(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 01/02 Released w/o [employer] Theater Facilit y 0013C-AF- C-19TH MED[facility]-Li [facility] [id number] Encount er for issue of other medical certifi piyush ZHOU 08/22 Discharge Disposition: Home or Self Care 0013C-A F-C-19T H [facility]- [place] 0013C-AF- C-19TH [facility]-Li [facility] Mass Vaccine [id number] 09/23 0013C-A F-C-19T H [facility]- [place] 0013C-AF- C-19TH MED[facility]-Li [facility] Dental [id number] ADRIANNE RGARRJAMES 10/01 Discharge Disposition: Home or Self Care 0013C-A F-C-19T H [facility]- [place] 0013C-AF- C-19TH [facility] [id number] Encount er for issue of other medical certifi piyush RUPALI FERMIN 11/22 Discharge Disposition: Home or Self Care 0013C-A [facility]T [facility] [place] [id number] MDG Outside Documentat ion Only [id number] 12/03 Discharge Disposition: Home or Self Care [id number] MDG Procedures Combined list of: 1) Procedures from Department of Veterans Affairs facilities going back up to thelast 18 months, not all VA non-surgical procedures are included; 2) All procedures from the Department of Defense facilities. Procedure Procedure Type Code Date Perfomer Comments Sourc e TELE ASSESS & MGT SRV PROV QUAL NONPHYS HLTH CARE PRO TO EST PAT,PARENT,GUARD NOT ORIG REL ASSESS & MGT SRV PROV W/IN PREV 7 DAYS NOR LEAD ASSESS & MGT SRV/PX W/IN NXT 24 HR/SOON APT;5-10 MIN MED DIS 2020 [facility] ADMINISTRATION OF PATIENT-FOCUSED HEALTH RISK ASSESSMENT INSTRUMENT [...] SCREENING TEST, PURE TONE, AIR ONLY 2019 [facility] SCREENING TEST, PURE TONE, AIR ONLY 2019 [facility] ADMINISTRATION OF PATIENT-FOCUSED HEALTH RISK ASSESSMENT INSTRUMENT (EG, HEALTH HAZARD APPRAISAL) WITH SCORING AND DOCUMENTATION, PER STANDARDIZED INSTRUMENT 2019 [facility] BRIEF COMM TECH-BASE SERV,E.G. VIRT CHK-IN,BY PHYS/OTH QUAL HCP,RPT E&M SERV,PROV TO EST PT,NOT ORIG FRM REL E/M SERV PROV W/IN PREV 7DAY NOR LEAD TO E/M SRV/PX W/IN NEXT 24HR/SOON BERNARD; 5-10 MIN DISC 2019 [facility] Threshold Audiogram (Pure Tone) Threshold Audiogram (Pure Tone) [id number] Supervised Injection Intramuscular Antibiotic Supervised Injection Intramuscular Antibiotic 23075 TIMO HEREDIA Brief communication technology-based service, e.g. [...] 5-10 minutes of medical discu MYRNA Vázquez Audiogram (Screening) Audiogram (Screening) 33892 MARGARET HENSLEY Non-Physician Phone Call To Patient/Provider Brief (5-10min) Non-Physician Phone Call To Patient/Provider Brief (5-10min) 44575 CECELIA MCGOWAN Ophthalmological New Patient Start Comprehensive Care Ophthalmological New Patient Start Comprehensive Care [id number] SATURNINO HOWARD Determination Of Refractive State Determination Of Refractive State 59226 SATURNINO HOWARD Spectacles Services Fitting Monofocals (Not For Aphakia) Spectacles Services Fitting Monofocals (Not For Aphakia) 60832 SATURNINO HOWARD 5A: 52/22/145, 1 clear FOC: Delia 55/16/140 Isacc Ophthalmological Prior Patient Start Intermediate Level Care Ophthalmological Prior Patient Start Intermediate Level Care 64711 SATURNINO HOWARD Prescription & Fitting Bilateral Corneal Lenses (Not Aphakia Prescription & Fitting Bilateral Corneal Lenses (Not Aphakia 18521 SATURNINO HOWARD [facility] Non-Physician Phone Call To Pt/Provider Intermed (11-20 min) Non-Physician Phone Call To Pt/Provider Intermed (11-20 min) 74796 CECELIA MCGOWAN [facility] Psychometric Neuropsych Testing Battery Admin By Computer Psychometric Neuropsych Testing Battery Admin By Computer [id number] BREANNA GREENE [facility] No data available for this section Ambulatory Pharmacy Social History Combined list of available smoking, tobacco, and other social history from Department of Defense and Veterans Affairs facilities. Social History Type Response Date Comment Sour e Sex Representation Male (finding) 07/21/2020 Un known Organization This section is an empty social history section. DoD Tobacco Frequent/Daily exposure to secondhand smoke in indoor/confined spaces No. Cigarette use: Never-cigarette user. Other Tobacco use: Never-other tobacco user (not cigarettes). Ambulatory Pharmacy Sexual Orientation Ambula tory Pharmacy Gender identity Ambulator y Pharmacy Assessment and Plan Combined list of future care activities from Department of Defense and Veterans Affairs facilities (e.g., assessment and plan notes, appointments, orders, and referrals). Additional future care activities may be listed in the Plan of Care section. Result Assessment and Plan Date Source Assessment and Plan Extracted from:Title : [facility] - F2F - SHPE (PCPF) Author: RUPALI RAMÍREZ PA Date: 11/22/24 1. E ncounter for issue of other medical certificate H unter G merlin i s a 2 3 Years o ld Male p resents for SHPE prior to separation along with P shirley Feliz/[place] request. R cornelioiewed and discussed any issues reported on 2806-10 No significant physical or mental health findings identified during record review that would limit e ligibility for the tacos feliz/[place] program. Member is n ot currently under the care of a medical file clerk a nd has no upcoming surgeries scheduled. [...] Form 2808 and SHPE documents signed/completed in [facility] -- M ember to follow up with PCM as needed for any health changes -- D oes not meet criteria for I n Transition Program -- PVUA SM medically cleared for P CPF. AF Form 422 completed in [facility]. [facility] Readiness: IMR Status: Green Action Items: --- Profile: No restrictions, WWQ Retention: M eets Standards Special Duty: N one Extracted from:Title: [id number]/PHA Author: KRISTI MANCIA NP Date: 08/22/24 1. E ncounter for issue of other medical certificate Virtual encounter for n on-fly PHA/MHA. I spent about 10-19 mins via telephone r eviewing and discussing PHAQ and MHA responses as well as chart/med review. Both PHA and MHA reviewed and signed off i n ASIME. * High risk/priority items identified: None MHA: [...] Patient is a koroma of resources available (Photographic Equipment Inspector, TONA, OP, [facility] Source, P CM, Family Advocacy, [facility]). Discussed available options to schedule with services if desired. Medication reconciliation complete. All questions answered. 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 See [facility] note copied to RADHA for further details. [...] proofread, using voice recognition software. Henrik Mcmullen [address] [place] [address], 19 MDG/OMRS [employer], [place] Extracted from:Title: Left wrist pain [...] refill(s), Maintenance, 1 tab(s) Oral Daily, Pharmacy: [facility] [Not filled] XR Hand Complete 3+ Views Left XR Wrist Complete 3+ Views Left [employer] R EADINESS: -- New AF 469 (//MR) -- IMR reviewed - ajmia mccarty -- Member is world-wide qualified -- Member meets retention standards BRIGHT Daniel [address], OMRS/SGXF [employer] Extracted from:Title: [facility] - F2F - Audiogram F/u (PTS)-- Reset [...] Profile: H -1 Audiogram Findings: L eft: [facility] Will recommend resetting l eft a udiogram baseline with results from MAY 24 (2nd a ttempt) -- AF IMT 1753 signed and returned to [facility] -- Recommend new DD 2215 with re-established [...] to plan Ordered: Referral Request 2.0 - [facility] Ziptr FORCE Zachary LAZO: -- No a ctive AF 469 -- IMR reviewed - jamia mccarty -- Member is world-wide qualified -- Member meets retention standards Captain Melissa Portillo PA-C [facility] [employer], OMRS/SGXF [place] [employer] Extracted from:Title: Office Clinic Note [...] 1 tab(s) Oral every 4 hr,PRN:fever, Pharmacy: [facility] [Last filled 03/06/24] acetaminophen(Tylenol 325 mg oral tablet), 1 tab(s), Oral, every 4 hr, PRN pain or fever, # 50 tab(s), 0 total refill(s), Acute, 03/06/2025, 1 tab(s) Oral every 4 hr,PRN:pain or fever, Pharmacy: [facility] [Last filled 03/06/24] ondansetron(Zofran ODT 4 mg oral tablet, disintegrating), 1 tab(s), Oral, every 8 hr, PRN nausea/vomiting, # 30 tab(s), 0 total refill(s), Acute, 04/06/2024, 1 tab(s) Oral every 8 hr,PRN:nausea/vomiting, Pharmacy: [facility] [Last filled 03/06/24] AIR FORCE R EADEVANTE: -- No a ctive AF 469 -- IMR andrzej - jamia mccarty -- Member is world-wide qualified -- Member meets retention standards 1st Lt Melissa Portillo PA-C [facility] [employer], OMRS/SGXF [employer] Extracted from:Title: Acute viral URI Author: SHEEBA PATTON, [facility] Date: 01/02/24 Acute URI (upper respiratory infection) 23 y /o ADAF male presents to [facility] for eval of symptoms consistent with resolving [...] non-fly/prp/auof No MR// Qtrs x24 Member treated ORW [facility] M/D Protocols: Green Protocol TSgt Sheeba Patton [facility], [employer]th MD[employer], LRAFB Extracted from:Title: GI upset Author: CHINO TINOCO, MATT Date: 09/18/23 1. G astritis Gastritis w/ L eye conjunctivitis, suspect viral origin. likely adenovirus. A febrile. Well appearing. PE normal. Low suspicion for connection with prior GI sx. - [place] diet with protein sources during acute illness - Zofran PRN N/V - Pepcid 20 mg BID PRN N/V, epigastric discomfort - Quarters x 24h - Call GI to schedule colonoscopy and f/u F/u PRN Ordered: famotidine(Pepcid 20 mg oral tablet), 1 tab(s), Oral, BID, # 14 tab(s), 0 total refill(s), Maintenance, 1 tab(s) Oral BID,x7 days, Pharmacy: [facility] [Not filled] ondansetron(Zofran 4 mg oral tablet), 1 tab(s), Oral, every 8 hr, PRN nausea/vomiting, # 30 tab(s), 0 total refill(s), Acute, 09/18/2024, 1 tab(s) Oral every 8 hr,PRN:nausea/vomiting, Pharmacy: [facility] [Not filled] 2. C onjunctivitis of left eye PVUA and denies any questions. [facility] READINESS: AUoF: No PRP: N o Aero: N o -- No active AF 469 -- IMR reviewed - green -- [facility] -- Member meets retention standards Capt Chino Tinoco, [facility] [employer], [employer]OS [place] [employer] Extracted from:Title: [facility]- - [facility] NON-FLY MHA/PHA Author: SHERLY HUNT NP Date: 08/24/23 1. 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 [employer] [place] Readiness SM is WWQ No AF 469 [...] with and (suspected) exposure to COVID-19 05/15/2025 [id number]- [facility] Functional Status Combined list of recent functional and cognitive assessments recorded at Department of Defense and Veterans Affairs (VA).VA Functional [place] Measurement (FIM) Scale: 1 = Total Assistance (Subject = 0% +), 2 = Maximal Assistance (Subject = 25% +), 3 = Moderate Assistance (Subject = 50% +), 4 = Minimal Assistance (Subject = 75% +), 5 = Supervision, 6 = Modified [place] (Device), 7 = Complete [place] (Timely, Safely). Assessment Date/Time Source Assessment Type Assessment Skill Assessment Score Assessment Details No data available for this section
--- OUTSIDE RECORDS SUMMARY | 2025-05-15 08:12 | XMS_ITS ---
Author Organization Unknown Address [address], [place] [id number] Phone Care Team Providers Care Desk Operator Name Role Phone Crista Simmons Attending [...] URINALYSIS - Collect Date/Ti me: 03/28/2023 07:55 [facility] ID: [id number] [address] [place], [place], [id number] LOINC: Test Value Unit Reference Range Code [...] RSV JANE - Collect Date/Time: 03/28/2023 07:15 [facility] ID: [id number] [address] [place], [place], [id number] LOINC: 89581-8 Test Value Unit Reference Range Code Code System Flag SARS-CoV-2 NOT DETECTED INFLUENZA A PCR NOT DETECTED INFLUENZA B PCR NOT DETECTED RSV PCR NOT DETECTED NORMAL: NEGATIVE STREP SCREEN - Collect Date/ Time: 03/28/2023 07:15 [facility] ID: [id number] [address] [place] [place], [place], [id number] LOINC: 6556-5 Test Value Unit Reference Range Code Code System Flag STREP SCREEN NEGATIVE NORMAL: NEGATIVE 6556-5 LOINC CBC W DIFF - Collect Date/Ti me: 03/28/2023 07:10 [facility] ID: [id number] [address] [place] [place], [place], [id number] LOINC: 00655-7 Test Value Unit Reference Range Code Code [...] ER - Collect Date/Ti me: 03/28/2023 07:10 [facility] ID: [id number] [address] [place] [place], [place], [id number] LOINC: 2345-7 Test Value Unit Reference Range Code Code System Flag LACTATE 1.30 mmol/L L=0.50 H=2.20 MAGNESIUM LEVEL - Collect Da te/Time: 03/28/2023 07:10 [facility] ID: [id number] [address] [place] [place], [place], [address] LOINC: 40641-1 Test Value Unit Reference Range Code Code System Flag MAGNESIUM 1.5 mg/dL L=1.6 H=2.6 L COMPREHENSIVE METABOLIC PANE L - Collect Date/Time: 03/28/2023 07:10 [facility] ID: [id number] [address] [place] [place], [place], [id number] LOINC: 53458-5 Test Value Unit Reference Range Code Code [...] L=8.4 H=10.2 CO2 22.2 mmol/L L=20.0 H=33.0 7-1 LOINC ANION GAP 15 mmol/L L=8 H=16 SGPT 12 U/L L=5 H=40 AMYLASE - Collect Date/Time: 03/28/2023 07:10 [facility] ID: [id number] [address] [place] [place], [place], [address] LOINC: 1798-8 Test Value Unit Reference Range Code Code System Flag AMYLASE 32 U/L L=28 H=100 LIPASE - Collect Date/Time: 03/28/2023 07:10 [facility] ID: [id number] [address] [place] [place], [place], [address] LOINC: 3040-3 Test Value Unit Reference Range Code Code System Flag LIPASE 20 U/L L=13 H=60 CHEST 1 - Completed: 023 07:45 LOINC: EXAMINATION: CHEST RADIOGRAP H SINGLE VIEWAccession: [id number] date/time: 03/28/2023 7:00 AM Reason For Exam: Fever and weakness andComparison: NoneTechnique: Upright AP view of the chestFindings: Heart size normal. Proximal airways unremarkable. No suspicious pulmonary lesion, pneumothorax, or pleural effusion.=====IMPRESSION:===== No acute findings. Created and Electronically Signed by:Brice Yu MD03/28/2023 08:31 CT ABD & PELVIS W/MELINDA SAMSON T - Completed: 03/28/2023 08:57 LOINC: EXAMINATION: CT ABDOMEN AND PELVIS WITH AND WITHOUT CONTRASTACCESSION: [id number] DATE/TIME: 03/28/2023 8:32 AM REASON FOR EXAM: [...] em Smoking History Never smoker (Never Smoked) [id number] [place] [facility] Sex Male Hospital Discharge Instructions Should [...] Code System No Known Drug Allergies Active [id number] SNOMED-CT Plan of Treatment No Data Found Encounters Encounter Diagnosis Start Date Code Code Sys tem Infectious gastroenteritis and colitis, unspecified SNOMED-CT Personal Care Team Section Imaging Narrative Notes Progress Notes [facility] 03/28/2023 10:32 Clinical Report - Physicians/Mid Levels [facility] Emergency Department [address] [place] [address] Patient: ABI GERMAN Sex: M : 2000 [...] acute distress. Clinical Report - Physicians/Mid Levels [facility] Emergency Department [address] [place] [address] Patient: ABI GERMAN Sex: M : 2000 [...] Exam CT ABD PELVIS W/WO CONTRAST [address] [place] [address] RADIOLOGY REPORT NAME: NUMBER: SEX: AGE: ADMIT: SERVICE: Type: ABI GERMAN [id number] [facility] 03/28/23 E 3 DATE OF : 2000 M/R#: [id number] HOME PHONE: [phone] RM: 178 CELL PHONE: [phone] ACCESSION NUMBER: [id number] CT ABD COMPLETE: 03/28/2023 08:57 NICOLE ATTENDING [...] techniques. FINDINGS: Clinical Report - Physicians/Mid Levels [facility] Emergency Department [address] [place] [address] Patient: ABI GERMAN Sex: M : 2000 Age: 23y Arrrival: 03/28/2023 06:42 Departure: 03/28/2023 10:25 Disposition: Discharge Without contrast:No evidence of hemorrhage or obstructive or nonobstructive urolithiasis. Abdomen: Adrenal glands are unremarkable. Kidneys demonstrate no suspicious lesion or hydronephrosis. Stomach and duodenum are unremarkable. Spleen is unremarkable. Gallbladder is partially filled [place] [address] [place] [address] RADIOLOGY REPORT NAME: NUMBER: SEX: AGE: ADMIT: SERVICE: Type: ABI GERMAN [id number] 23 03/28/23 E 3 DATE OF : 2000 M/R#: [id number] HOME PHONE: [phone] RM: 178 CELL PHONE: [phone] ACCESSION NUMBER: [id number] CT ABD COMPLETE: 03/28/2023 08:57 NICOLE ATTENDING [...] uncertain. Clinical correlation and follow-up recommended. [address] [address] RADIOLOGY REPORT NAME: NUMBER: SEX: AGE: ADMIT: SERVICE: Type: ABI GERMAN [id number] 23 03/28/23 E 3 Clinical Report - Physicians/Mid Levels [facility] Emergency Department [address] [place] [address] Patient: ABI GERMAN Sex: M : 2000 Age: 23y Arrrival: 03/28/2023 06:42 Departure: 03/28/2023 10:25 Disposition: Discharge DATE OF : 2000 M/R#: [id number] HOME PHONE: [phone] RM: 178 CELL PHONE: [phone] ACCESSION NUMBER: [id number] CT ABD COMPLETE: 03/28/2023 08:57 NICOLE ATTENDING [...] (NORMAL: None Clinical Report - Physicians/Mid Levels [facility] Emergency Department [address] [place] [address] Patient: ABI GERMAN Sex: M : [...] None [place] NONE SEEN (NORMAL: None CMP: (REJI: 03/28/2023 07:10) ( MsgRcvd 03/28/2023 07:41) Final [...] fluid imbalance.\BLDx\ Amylase: (REJI: 03/28/2023 07:10) ( [facility] 03/28/2023 07:41) Final results Test Result Flag Units (Reference) AMYLASE 32 U/L (28 - 100) Lipase: (REJI: 03/28/2023 07:10) ( AzgRcvd 03/28/2023 07:42) Final results Test Result Flag Units (Reference) LIPASE 20 U/L (13 - 60) Lactate, Serum: (REJI: 03/28/2023 07:10) ( [facility] 03/28/2023 07:38) Final results Test Result Flag Units (Reference) LACTATE 1.30 mmol/L (0.50 - 2.20) Magnesium: (REJI: 03/28/2023 07:10) ( [facility] 03/28/2023 07:42) Final results Test Result Flag Units (Reference) MAGNESIUM 1.5 L mg/dL (1.6 - 2.6) MAGNESIUM OB THERAPEUTIC RANGE: 4.8 - 8.4 mEq/L COVID, Flu A and B RSV: (REJI: 03/28/2023 07:15) ( [facility] 03/28/2023 08:05) Final results Test Result Flag Units (Reference) SARS-CoV-2 NOT DETECTED SARS-CoV-2 test is only for use under FDA Emergency Use Authorization INFLUENZA A PCR NOT DETECTED INFLUENZA B PCR NOT DETECTED RSV PCR NOT DETECTED (NORMAL: NEGAT Clinical Report - Physicians/Mid Levels [facility] Emergency Department [address] [place] [id number] Patient: ABI GERMAN Sex: M : 2000 Age: 23y Arrrival: 03/28/2023 06:42 Departure: 03/28/2023 10:25 Disposition: Discharge Rapid Strep Screen: (REJI: 03/28/2023 07:15) ( MsgRcvd 03/28/2023 07:38) Final results Test Result Flag Units (Reference) STREP SCREEN NEGATIVE (NORMAL: NEGAT Chest 1V: (REJI: 03/28/2023 07:30) ( MsgRcvd 03/28/2023 08:32) Final results Exam CHEST [address] [place] [address] RADIOLOGY REPORT NAME: NUMBER: SEX: AGE: ADMIT: SERVICE: Type: ABI GERMAN [id number] [facility] 03/28/23 E 3 DATE OF : 2000 M/R#: [id number] HOME PHONE: [phone] RM: 178 CELL PHONE: [phone] ACCESSION NUMBER: [id number] CHEST 1 COMPLETE: 03/28/2023 07:45 NICOLE ATTENDING [...] results Exam CT BRAIN W/O CONTRAST [address] [place] [address] Clinical Report - Physicians/Mid Levels [facility] Emergency Department [address] [place] [address] Patient: ABI GERMAN Sex: M : 2000 Age: 23y Arrrival: 03/28/2023 06:42 Departure: 03/28/2023 10:25 Disposition: Discharge RADIOLOGY REPORT NAME: NUMBER: SEX: AGE: ADMIT: SERVICE: Type: ABI GERMAN [id number] M 23 03/28/23 E 3 DATE OF : 2000 M/R#: [id number] HOME PHONE: [phone] RM: 178 CELL PHONE: [phone] ACCESSION NUMBER: [id number] CT BRAIN W/O CONTRAST COMPLETE: 03/28/2023 07:45 [...] unremarkable. IMPRESSION: NO ACUTE INTRACRANIAL ABNORMALITY. [address] [place] [address] RADIOLOGY REPORT NAME: NUMBER: SEX: AGE: ADMIT: SERVICE: Type: ABI GERMAN [id number] M 23 03/28/23 E 3 DATE OF : 2000 M/R#: [id number] HOME PHONE: [phone] RM: 178 CELL PHONE: [phone] ACCESSION NUMBER: [id number] CT BRAIN W/O CONTRAST COMPLETE: 03/28/2023 07:45 NICOLE ATTENDING PHYSICIAN: PETER BENTLEY SECOND PHYSICIAN: OTHER DICTATING PHYSICIAN: Jayant Rdz MD PRIMARY CARE PHYSICIAN: OTHER Unsigned transcriptions represent a preliminary report and do not represent a medical or legal document Created and Electronically Signed by: Jayant Rdz MD 03/28/2023 08:23 Clinical Report - Physicians/Mid Levels [facility] Emergency Department [address] [place] [address] Patient: ABI GERMAN Sex: M : 2000 [...] No refill Clinical Report - Physicians/Mid Levels [facility] Emergency Department [address] [place] [address] Patient: ABI GERMAN Sex: M : 2000 Age: 23y Arrrival: 03/28/2023 06:42 Departure: 03/28/2023 10:25 Disposition: Discharge Follow-up: Follow up with your healthcare provider. Understanding of the discharge instructions verbalized by patient and family. (Electronically signed by Peter Bentley MD 03/28/2023 10:18) [facility] 11/20/2024 11:18 Addenda for ABI GERMAN VisitID: [id number] Date: 03/28/2023 03/29/2023 11:06 03/29/23 1100 Pt's mother called and requested a work note for his visit yesterday. Dr. Salgado states to provide pt with a work note for 2 days. 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 Mother states pt is feeling much better today. (Electronically signed by Mimi Canales R.N. - 03/29/2023 11:06)
[2025-05-15 08:14] VITALS: BP 112/58; PULSE 62; RESP 18; TEMP 36.6; O2SAT 100
== END 2025-05-15 08:56 | disposition home or self-care (01) ==
PROVIDERS: Emergency Provider Nurse Practitioner Family; Referring Provider Family Medicine
DX: S93.402A Sprain of unspecified ligament of left ankle, initial encounter (principal); X50.9XXA Other and unspecified overexertion or strenuous movements or postures, initial encounter
CPT/HCPCS: 73610; 99213; G0463